=== PATIENT | female | born 1975 | race Caucasian/White ===

== ENCOUNTER → 2016-04-29 09:17 | Outpatient (CLI) | payer MEDICAID ==
--- NOTE | 2016-05-02 08:26 | EEG ---
PATIENT:YAJAIRA DE LA FUENTE DATE OF SERVICE: 04/29/16 MEDICAL RECORD: [id number] DATE OF : 79 LOCATION: [facility] ADMISSION DATE: 04/29/16 REFERRING PHYSICIAN: INTERPRETING PHYSICIAN: IDA BRUCE MD DATE OF SERVICE: 04/29/2016 Electroencephalographic Report REFERRED BY: Dr. Negron as an outpatient. ELECTROENCEPHALOGRAM NUMBER: [id number]. DATE OF EXAMINATION: 04/29/2016 at 10:00 a.m. TECHNICAL DATA: This electroencephalographic recording consisted of approximately 20 minutes of data collection utilizing the international 10/20 system of electrode placement and both referential and non-referential montages. Sixteen channels of electrocerebral recording are accompanied by a 17th channel dedicated to the electrocardiographic rhythm and 2 channels of electromyographic recording. Recording is performed in the awake and drowsy states utilizing activation by hyperventilation and photic stimulation. ELECTROENCEPHALOGRAPHIC DATA: The awake state comprises 90% of the recorded electrocerebral activity. Electromyographic artifact is prominent and rapid eye movements are seen. The posterior dominant background consists of a well-developed, symmetric, rhythmic, waxing and waning alpha activity of 10-11 Hz, which is suppressed by eye opening. The drowsy state comprises only approximately 10% of the recorded electrocerebral activity. The patient is just starting to become drowsy at the end of the recording when she was awakened to complete the study. Electromyographic artifact is diminished and rapid eye movements are not seen. The posterior dominant background is suppressed. Also seen is an intermittent irregular, generalized and symmetric 5-6 Hz theta slowing. No abnormal nor focal slowing is identified. No epileptiform discharges are seen. Hyperventilation and photic stimulation induced no abnormal change in the recorded electrocerebral activity. INTERPRETATION: Normal (awake and drowsy). This is a normal electroencephalographic recording. TRANSINT:[id number] Voice Confirmation ID: [id number] DOCUMENT ID: [id number] ELECTROENCEPHALOGRAM REPORT [id number] YAJAIRA DE LA FUENTE IDA BRUCE MD at 0826 CC: [id number] DICTATION DATE: 04/30/16 0730 LEAD RADIATION THERAPIST: 04/30/16 1733 DEP CLI 04/29/16 [id number] [place] [address]
== END | disposition home or self-care (01) ==
LOC: D.CN 09:17
DX: R55 Syncope and collapse (principal)